=== PATIENT | female | born 1935 | race Caucasian/White ===

== ENCOUNTER 2023-03-10 09:48 | Outpatient (RCR) | payer MEDICARE, SELFPAY | END 2023-03-11 12:43 | disposition home or self-care (01) | LOC: PT 09:48 | DX: Z98.1 Arthrodesis status (principal) | CPT/HCPCS: 97161 ==

== ENCOUNTER 2024-02-06 12:51 | Outpatient (RCR) | payer MEDICARE, SELFPAY | END 2024-02-19 16:46 | disposition home or self-care (01) | LOC: PT 12:51 | DX: M54.50 Low back pain, unspecified (principal) | CPT/HCPCS: 97110; 97140; 97161 ==

== ENCOUNTER 2024-11-11 12:53 | Outpatient (OUT) | payer MEDICARE, SELFPAY ==
[2024-11-11 13:25] LABS: Erythrocyte Sedimentation Rate 79 mm/hr (<=30)
[2024-11-11 14:39] LABS: C Reactive Protein 0.78 mg/dL (<=0.50); Thyroid Stimulating Hormone 2.236 uIU/mL (0.358-3.740)
[2024-11-12 05:07] LABS: HIV Ab/p24 Ag Screen Non Reactive (Non Reactive)
[2024-11-12 16:09] LABS: Deamidated Gliadin Abs, IgA 3 units (0-19); Deamidated Gliadin Abs, IgG 6 units (0-19); Endomysial Antibody IgA Negative (Negative); Immunoglobulin A, Qn, Serum 185 mg/dL (64-422); t-Transglutaminase (tTG) IgA <2 U/mL (0-3); t-Transglutaminase (tTG) IgG <2 U/mL (0-5)
== END 2024-11-11 12:54 | disposition home or self-care (01) ==
LOC: LAB 12:55
PROVIDERS: Visit Provider Internal Medicine
DX: R19.7 Diarrhea, unspecified (principal)
CPT/HCPCS: 36415; 82784; 84443; 85652; 86140; 86231; 86258; 86364; 87389

== ENCOUNTER 2024-11-17 08:39 | Outpatient (REF) | payer MEDICARE, SELFPAY ==
[2024-11-17 10:33] LABS: C. Difficile PCR NEGATIVE
[2024-11-19 08:08] LABS: Calprotectin, Fecal 29 ug/g (0-120)
[2024-11-22 01:06] LABS: Pancreatic Elastase, Fecal 300 (>200)
== END 2024-11-17 08:40 | disposition home or self-care (01) ==
LOC: LAB 08:39
PROVIDERS: Visit Provider Internal Medicine
DX: R19.7 Diarrhea, unspecified (principal)
CPT/HCPCS: 82656; 83993; 87493